=== PATIENT | female | born 1955 | race Caucasian/White ===

== ENCOUNTER 2024-09-14 08:28 | Emergency (ER) | payer MEDICARE, MEDICAID ==
[~2024-09-14] VITALS: Ht 160 cm; Wt 63.0 kg
[2024-09-14 08:38] VITALS: BP 141/77; PULSE 74; O2SAT 98
[2024-09-14 09:49] VITALS: RESP 14
[2024-09-14] MEDS: predniSONE 20 mg tablet PO ONE (09:49)
[2024-09-14] MEDS: oxyCODONE/APAP 5-325mg tablet PO ONE (09:49)
[2024-09-14] MEDS: LIDOcaine 5% patch TP STA (09:49)
[2024-09-14] MEDS ORDERED: LIDO700A32 TD (09:51)
[2024-09-14] MEDS ORDERED: OXYC-145 PO (09:51)
[2024-09-14] MEDS ORDERED: DICL20GE TOP (09:51)
[2024-09-14] MEDS ORDERED: PRED20TA PO (09:51)
[2024-09-14 09:59] VITALS: TEMP 97.9
== END 2024-09-14 10:05 | disposition home or self-care (01) ==
LOC: ER 08:28
DX: G89.29 Other chronic pain (principal); M54.50 Low back pain, unspecified; Z79.899 Other long term (current) drug therapy; Z79.52 Long term (current) use of systemic steroids
CPT/HCPCS: 99284; J7512

== ENCOUNTER 2024-12-16 19:56 | Emergency (ER) | payer MEDICARE, MEDICAID ==
[~2024-12-16] VITALS: Ht 154.9 cm; Wt 58.5 kg
[~2024-12-16 19:56] MED LIST: DICL20GE TOP; LIDO700A32 TD; OXYC-145 PO
[2024-12-16 22:57] LABS: BILIRUBIN,URINE NEGATIVE (Neg); CLARITY,URINE SLIGHTLY CLOUDY (Clear); COLOR,URINE YELLOW (Yellow); GLUCOSE, URINE NEGATIVE (Neg); KETONES,URINE TRACE mg/dl (Neg); LEUKOCYTE ESTERASE ,URINE TRACE (Neg); NITRITES, URINE NEGATIVE (Neg); OCCULT BLOOD,URINE NEGATIVE (Neg); PROTEIN,URINE NEGATIVE (Neg); UROBILINOGEN,URINE 0.2 E.U/dL (0.2-1.0)
[2024-12-16 22:59] LABS: UA COLLECTION TYPE CLN CATCH MIDSTREAM
[2024-12-16 23:04] LABS: BACTERIA,URINE FEW /HPF (Neg); MUCUS STRANDS FEW /LPF (Neg); RBC,URINE NONE SEEN /HPF (0-2); SQUAMOUS EPITHELIAL CELL,UR FEW /LPF (FEW)
[2024-12-16] MEDS: ketorolac trometh 30MG/ML vial 30 MG/ML VIAL IV ONE (23:53)
[2024-12-16] MEDS: diazepam 5mg tablet PO ONE (23:54)
[2024-12-17 01:11] LABS: BASOPHILS # (AUTO) 0.1 X10'3 (0-0.2); BASOPHILS % (AUTO) 1.2 % (0-1); EOSINOPHILS # (AUTO) 0.3 X10'3 (0-0.9); EOSINOPHILS % (AUTO) 3.4 % (0-6); HEMATOCRIT 37.7 % (35.0-45.0); HEMOGLOBIN 12.7 g/dl (12.0-16.0); LYMPHOCYTES # (AUTO) 3.2 X10'3 (1.1-4.8); LYMPHOCYTES % (AUTO) 43.2 % (21-51); MEAN CORPUSCULAR HEMOGLOBIN 29.7 PG (27.0-31.0); MEAN CORPUSCULAR HGB CONC 33.7 g/dL (33.0-36.5); MEAN CORPUSCULAR VOLUME 88.1 FL (78-98); MEAN PLATELET VOLUME 8.5 FL (7.4-10.4); MONOCYTES # (AUTO) 0.7 X10'3 (0-0.9); MONOCYTES % (AUTO) 8.9 % (2-12); NEUTROPHILS # (AUTO) 3.2 X10'3 (1.8-7.7); NEUTROPHILS % (AUTO) 43.3 % (42-75); PLATELET COUNT 299 X10'3 (140-440); RED BLOOD COUNT 4.28 X10'6 (4.20-5.60); RED CELL DISTRIBUTION WIDTH 13.6 % (11.5-14.5); WHITE BLOOD COUNT 7.4 X10'3 (4.5-11.0)
[2024-12-17 01:20] LABS: ALANINE AMINOTRANSFERASE 41 U/L (12-78); ALBUMIN 3.6 G/DL (3.4-5.0); ALKALINE PHOSPHATASE 132 IU/L (46-116); ANION GAP 9 (8-16); ASPARTATE AMINO TRANSFERASE 29 U/L (10-37); BILIRUBIN,TOTAL 0.1 MG/DL (0.1-1.0); BLOOD UREA NITROGEN 26 MG/DL (7-18); BUN/CREATININE RATIO 24.5 (10.0-20.0); CALCIUM 8.6 MG/DL (8.5-10.1); CHLORIDE 105 MMOL/L (99-107); CREATININE 1.06 MG/DL (0.40-0.90); GLUCOSE 101 MG/DL (70-104); SODIUM 140 MMOL/L (135-145); TOTAL CARBON DIOXIDE 25.6 MMOL/L (24-32); TOTAL PROTEIN 7.2 G/DL (6.4-8.2); eCRCL 38 ML/MIN; eGFR 52 ML/MIN
[2024-12-17] MEDS ORDERED: iohexol 300mg/ml 100ml inj. ONE (01:23)
[2024-12-17] MEDS: ondansetron/PF 4mg/2ml inj IV ONE (01:39)
[2024-12-17 02:05] VITALS: PULSE 77
[2024-12-17] MEDS ORDERED: METH-797 PO (03:06)
[2024-12-17] MEDS: methylPREDNISolone sod succ/PF 40mg inj. IV ONE (03:12)
[2024-12-17] MEDS: tizanidine 4mg tablet PO ONE (03:12)
[2024-12-17 03:28] VITALS: BP 104/55; RESP 14; TEMP 97.3; O2SAT 96
== END 2024-12-17 03:30 | disposition home or self-care (01) ==
LOC: ER 19:56
DX: M54.50 Low back pain, unspecified (principal); G89.29 Other chronic pain; Z79.1 Long term (current) use of non-steroidal anti-inflammatories (NSAID); Z79.899 Other long term (current) drug therapy
CPT/HCPCS: 36415; 74177; 80053; 81001; 85025; 87088; 96374; 96375; 99285; J1885; J2405; J2919; Q9967

== ENCOUNTER 2025-03-09 09:58 | Outpatient (CLI) | payer MEDICARE, MEDICAID ==
[~2025-03-09 09:58] MED LIST changes: +METH-797 PO
--- NOTE | 2025-03-09 11:23 | RADIOLOGY REPORT ---
PROCEDURE: MR MRI LUMBAR SPINE Indication: SPINAL STENOSIS, LUMBAR REGION WITHOUT NEUROGENIC ANTONINO COMPARISON: None TECHNIQUE: Multiplanar multisequence images of the the lumbar spine are obtained. FINDINGS: For the purpose of this examination, there are 5 lumbar vertebral body types counting from the lumbos acral junction. Lumbar levoscoliosis. Old T12 compression fracture deformity with 40% loss height. Moderate multilev el disc space narrowing and desiccation. Conus terminates at the level of the L1 vertebral body level . No abnormal marrow edema. T12-L1: 2 mm disc protrusion. Iyav-ps-qgbkdatn facet and flavum hypertrophy. No spinal canal stenosis . Moderate to severe bilateral neural foraminal stenosis. L1-2: 2 mm disc protrusion. Jftp-wc-wmshzazz facet and flavum hypertrophy. No spinal canal stenosis. Moderate to severe right and anjo-lo-vvulmdju left neural foraminal stenosis. L2-3: 3 mm disc protrusion. Gwhb-jg-jbifbnic facet and flavum hypertrophy. No spinal canal stenosis. Moderate right and minimal left neural foraminal stenosis. L3-4: 3 mm disc protrusion. Moderate facet and flavum hypertrophy. No spinal canal stenosis. Mild-to- moderate bilateral neural foraminal stenosis. L4-5: 3 mm disc protrusion. Moderate facet and flavum hypertrophy. No spinal canal stenosis. Moderate left and nrpp-jr-navloufh right neural foraminal stenosis. L5-S1: Small disc protrusion. Moderate facet and flavum hypertrophy. No spinal canal stenosis. Modera te left and mild right neural foraminal stenosis. Colonic diverticular disease. IMPRESSION: 1. Moderate lumbar degenerative disc disease. 2. Severe lumbar levoscoliosis. 3. No high-grade spinal canal stenosis. 4. Multilevel neural foraminal stenosis as described. 5. Old T12 compression deformity.
== END 2025-03-09 23:59 | disposition home or self-care (01) ==
LOC: MRI02 09:58
PROVIDERS: ATTEND Nurse Practitioner Family
DX: M47.817 Spondylosis without myelopathy or radiculopathy, lumbosacral region (principal); M51.27 Other intervertebral disc displacement, lumbosacral region; M48.061 Spinal stenosis, lumbar region without neurogenic claudication
CPT/HCPCS: 72148

== ENCOUNTER 2025-08-17 14:30 | Outpatient (CLI) | payer MEDICARE, MEDICAID ==
[~2025-08-17 14:30] MED LIST changes: +LIDO-52 TD; -LIDO700A32 TD
--- NOTE | 2025-08-17 16:31 | RADIOLOGY REPORT ---
PROCEDURE: MR MRI C SPINE Indication: SPINAL STENOSIS, CERVICAL REGION COMPARISON: None TECHNIQUE: Multiplanar multisequence images of the the cervical spine are obtained. FINDINGS: There is anterior fusion of the C4 through C7 vertebral bodies. Moderate multilevel disc space narrowing with desiccation. No prevertebral edema. Atlantooccipital, atlantoaxial articulations intact. C2-3: Small disc osteophyte complex. No spinal canal stenosis. Mild left neural foraminal stenosis. C3-4: Disc osteophyte complex. No spinal canal stenosis. Moderate to severe bilateral neural foraminal stenosis. C4-5: Small disc osteophyte complex. No spinal canal stenosis. Mild right neural foraminal stenosis. C5-6: Small disc osteophyte complex. No spinal canal stenosis. Hbdx-gu-mokarrja bilateral neural foraminal stenosis. C6-7: Small disc osteophyte complex. No spinal canal stenosis. Moderate right and rqxv-vm-edaeufdt left neural foraminal stenosis. C7-T1: No spinal canal stenosis. No neural foraminal stenosis. There is a T2 bright lesion within the right parotid gland measuring 1.3 cm. IMPRESSION: Anterior fusion C4 through C7 with resultant susceptibility artifact, limiting evaluation. No high-grade spinal canal stenosis. Multilevel uvub-na-bcitlouy neural foraminal stenosis as described. A T2 bright lesion within the right parotid gland measuring 1.3 cm. Recommend MRI of the neck with and without contrast and ENT consultation to further characterize this lesion/mass.
--- NOTE | 2025-08-17 18:27 | RADIOLOGY REPORT ---
EXAM: MR MRI THORACIC SPINE INDICATION: SPINAL STENOSIS, THORACIC REGION TECHNIQUE: Multiplanar, multisequence imaging of the thoracic spine without contrast. COMPARISON: MR MRI C SPINE on DOS: 08/17/25 FINDINGS: [ANATOMY]: Severe rotatory dextroscoliotic curvature of the thoracic spine with compensatory levocurvature of the lumbar spine. [BONES]: Superior endplate height loss without associated bone marrow edema of T7 with 20 percent superior endplate height loss additional 10-20 percent superior endplate height loss with the associated possible cement placement of T12. [CORD]: Normal abnormal thoracic cord signal [SPINAL CANAL]: No significant spinal canal narrowing. [INTERVERTEBRAL DISCS]: Diffuse disc desiccation. no measurable significant large disc herniation [FACETS]: Normal alignment of the facets. Asymmetric facet arthropathy at L4-5 contributing to asymmetric areas of foraminal narrowing at these levels. [FORAMINA]: No significant foraminal narrowing. [OTHER]: The visualized paraspinal soft tissues are unremarkable. IMPRESSION: 1. Superior S shaped scoliotic curvature of the thoracolumbar spine. 2. No MR evidence of abnormal thoracic cord signal or bone marrow edema to suggest acute fracture. 3. Sequelae of prior vertebral plasty of T12 with 10-20 percent superior endplate height loss without evidence of retropulsion. 4. Foraminal narrowing at L4-5 and L5-S1.
== END 2025-08-17 23:59 | disposition home or self-care (01) ==
LOC: MRI02 14:30
PROVIDERS: ATTEND Psychiatry & Neurology Neurology
DX: M48.03 Spinal stenosis, cervicothoracic region (principal); M41.85 Other forms of scoliosis, thoracolumbar region; M25.78 Osteophyte, vertebrae; M47.816 Spondylosis without myelopathy or radiculopathy, lumbar region; M48.07 Spinal stenosis, lumbosacral region; M43.22 Fusion of spine, cervical region
CPT/HCPCS: 72141; 72146

== ENCOUNTER 2025-09-12 10:20 | Outpatient (CLI) | payer MEDICARE, MEDICAID ==
[2025-09-12 11:18] LABS: CHOL/HDL RATIO 3.8 (0.00-4.99); CREATININE 0.77 MG/DL (0.40-0.90); LDL CHOLESTEROL 159 MG/DL (50-100); TOTAL CARBON DIOXIDE 24.8 MMOL/L (24-32); eGFR 75 ML/MIN
== END 2025-09-12 23:59 | disposition home or self-care (01) ==
LOC: LAB 10:20
PROVIDERS: ATTEND Nurse Practitioner Family
DX: Z01.812 Encounter for preprocedural laboratory examination (principal); E78.49 Other hyperlipidemia
CPT/HCPCS: 36415; 80053; 80061

== ENCOUNTER 2025-09-20 12:28 | Outpatient (CLI) | payer MEDICARE, MEDICAID ==
[~2025-09-20 12:28] MED LIST changes: +GADOTERATE MEGLUMINE 7.5 MMOL/15 ML VIAL IV ONE
--- NOTE | 2025-09-20 14:16 | RADIOLOGY REPORT ---
PROCEDURE: MR MRI HEAD Indication: PAROTID MASS; OTHER DISEASES OF SALIVARY GLANDS COMPARISON: MRI cervical spine 08/17/2025 TECHNIQUE: Multiplanar multisequence images of the neck are obtain with and without contrast. FINDINGS: Anterior cervical fusion hardware at C4 through C7 results in susceptibility artifact, limiting evaluation. There is a right parotid superficial lobe lobulated 12 x 11 mm T1 dark, T2 bright lesion that is relatively homogeneously enhancing. There is no definitive infiltration to the adjacent fat. Left parotid gland unremarkable. The production line mechanic and parapharyngeal spaces are unremarkable. Submandibular glands unremarkable. Tiny right mastoid effusion. No significant cervical jugulodigastric/posterior cervical triangle lymphadenopathy. IMPRESSION: Enhancing T2 bright lesion in the right parotid superficial lobe measuring 12 mm. Differential considerations include pleomorphic adenoma, muco epidermoid carcinoma, Warthin's tumors and other lesions. Recommend ENT consultation for further evaluation. Recommend repeat MRI with DWI/ ADC mapping to further evaluate.
== END 2025-09-20 23:59 | disposition home or self-care (01) ==
LOC: MRI 12:28
PROVIDERS: ATTEND Nurse Practitioner Family
DX: H74.8X1 Other specified disorders of right middle ear and mastoid (principal); K11.8 Other diseases of salivary glands; M43.22 Fusion of spine, cervical region
CPT/HCPCS: 70543; A9575